=== PATIENT | male | born 2000 | race Two or more races ===

== ENCOUNTER 2019-12-07 08:02 | Inpatient (IN) | payer OTHER ==
[~2019-12-07] VITALS: Ht 172.7 cm; Wt 90.7 kg
--- NOTE | 2019-12-07 08:05 | NUR ---
ED Nurse Note:pt. was BIBA by [employer] and [employer] with suisidal ideations by henrry santana as he told his family , he was placed on 51/50 hold, VSS, no SOB, c/o abdominal pain, room security check was done, sitter log initiated, blood and urine sent to labs
[2019-12-07] MEDS ORDERED: Ketorolac 30mg Inj IV ONE (08:15)
[2019-12-07] MEDS ORDERED: Metoclopramide 10mg/2ml Inj IVP ONE (08:15)
[2019-12-07] MEDS ORDERED: DiphenhydrAMINE 50mg/ml Inj IVP ONE (08:15)
--- NOTE | 2019-12-07 08:26 | Emergency Room Report ---
History of Present Illness General Chief Complaint: Behavioral Complaint Source: Patient, EMS, Law Enforcement Present Illness HPI Patient brought by EMS accompanied by psychiatric evaluation team. Patient told family he was suicidal with a plan to cut his wrists. He had not decided about using razors or knives. He says he was mainly manipulating his family in order for them to be able to get OxyContin. He has been using OxyContin for 3 months. When he began he did not have pain. He does have pain at this time. He last took OxyContin last night. He is saying that he has pain in his stomach and feels nauseated. This pain is 8/10 more epigastric and nonradiating. He also has back pain that he says is 10/10. This is in his lower back. He denies fevers or chills. He is never had problems with depression before. He never taken medication for depression. The psychiatric evaluation team is placing him on a 5150. He believes his father attempted suicide in the past. His father still is alive at this time. No sore throat, chest pain, palpitations, vomiting, diarrhea, dysuria, shortness of breath, rashes, visual changes, dizziness, headache. Allergies: Coded Allergies: No Known Allergies (Unverified , 12/07/19) COVID-19 Screening Contact w/high risk pt: No Experienced COVID-19 symptoms?: No COVID-19 Testing performed LOFTER: No Patient History Past Medical History: see triage record Social History: Reports: smoking, drug use - OxyContin Social History Narrative lives with family Reviewed Nursing Documentation: PMH: Agreed; PSxH: Agreed Nursing Documentation-PM Past Medical History: No Stated History Review of Systems All Other Systems: negative except mentioned in HPI Physical Exam Vital Signs Date Time Temp Pulse Resp B/P (MAP) Pulse Ox O2 Delivery O2 Flow Rate FiO2 12/07/19 07:55 98.4 70 19 133/85 (101) 99 Room Air Sp02 EP Interpretation: reviewed, normal General Appearance: well appearing, no apparent distress, GCS 15 Head: normocephalic Eyes: bilateral eye normal inspection, bilateral eye PERRL, bilateral eye EOMI ENT: moist mucus membranes Neck: supple Respiratory: lungs clear, normal breath sounds Cardiovascular #1: regular rate, rhythm Cardiovascular #2: 2+ radial (R) Gastrointestinal: normal inspection, normal bowel sounds, non tender, no mass, non-distended Musculoskeletal: back normal, normal range of motion, gait/station normal Neurologic: alert, oriented x3 Suicide Risk Assessment: Suicidal Ideation: Yes Had intent to initiate attempt: No Pt's plan for suicide attempt: Yes Has means to complete attempt: Yes Skin: no rash, warm/dry, other - No goosebumps Medical Decision Making Diagnostic Impression: Primary Impression: Suicidal ideation Additional Impressions: Opiate abuse Lab test positive for detection of COVID-19 virus ER Course Patient presents with suicidal ideation after OxyContin use with abdominal and back pain. Differential includes new onset major depression, affective abuse of opiates, electrolyte imbalance, withdrawal amongst others. Patient evaluated with labs. He is placed on a 5150. Patient is treated for pain. A sitter is requested. Patient writhing in severe pain. Abd soft. Ativan and small dose of morphine ordered. Patient improved with treatment. Labs unremarkable aside from positive tox screen for THC and COVID-19 positive. Attempts to transfer the patient unsuccessful due to COVID-19 positive status. Considerations for psychiatric evaluation in the emergency department. However due to the problem of possible opiate withdrawal patient admitted to the hospital. Suggested psychiatric evaluation on the floor. Laboratory Tests Test 12/07/19 08:20 White Blood Count 7.7 K/UL (4.8-10.8) Red Blood Count 5.41 M/UL (4.70-6.10) Hemoglobin 15.7 G/DL (14.2-18.0) Hematocrit 47.9 % (42.0-52.0) Mean Corpuscular Volume 89 FL (80-99) Mean Corpuscular Hemoglobin 29.1 PG (27.0-31.0) Mean Corpuscular Hemoglobin Concent 32.8 G/DL (32.0-36.0) Red Cell Distribution Width 12.6 % (11.6-14.8) Platelet Count 159 K/UL (150-450) Mean Platelet Volume 8.2 FL (6.5-10.1) Neutrophils (%) (Auto) 81.3 % (45.0-75.0) H Lymphocytes (%) (Auto) 12.2 % (20.0-45.0) L Monocytes (%) (Auto) 5.7 % (1.0-10.0) Eosinophils (%) (Auto) 0.4 % (0.0-3.0) Basophils (%) (Auto) 0.4 % (0.0-2.0) Sodium Level 141 MMOL/L (136-145) Potassium Level 4.1 MMOL/L (3.5-5.1) Chloride Level 107 MMOL/L (98-107) Carbon Dioxide Level 27 MMOL/L (21-32) Anion Gap 7 mmol/L (5-15) Blood Urea Nitrogen 17 mg/dL (7-18) Creatinine 1.1 MG/DL (0.55-1.30) Estimated Glomerular Filtration Rate > 60 mL/min (>60) Glucose Level 93 MG/DL (74-106) Calcium Level 8.9 MG/DL (8.5-10.1) Total Bilirubin 0.5 MG/DL (0.2-1.0) Aspartate Amino Transferase (AST) 31 U/L (15-37) Alanine Aminotransferase (ALT) 36 U/L (12-78) Alkaline Phosphatase 83 U/L (46-116) Total Creatine Kinase 119 U/L (26-308) Total Protein 8.0 G/DL (6.4-8.2) Albumin 4.2 G/DL (3.4-5.0) Globulin 3.8 g/dL Albumin/Globulin Ratio 1.1 (1.0-2.7) Lipase 294 U/L (73-393) Salicylates Level 2.1 ug/mL (2.8-20) L Urine Opiates Screen Negative (NEGATIVE) Acetaminophen Level < 2 MCG/ML (10-30) L Urine Barbiturates Screen Negative (NEGATIVE) Phencyclidine (PCP) Screen Negative (NEGATIVE) Urine Amphetamines Screen Negative (NEGATIVE) Urine Benzodiazepines Screen Negative (NEGATIVE) Urine Cocaine Screen Negative (NEGATIVE) Urine Marijuana (THC) Screen Positive (NEGATIVE) H Serum Alcohol < 3 mg/dL Microbiology Date/Time Source Procedure Growth Status 12/07/19 08:20 Nasopharynx SARS-CoV-2 RdRp Gene Assay - Final Complete Last Vital Signs Date Time Temp Pulse Resp B/P (MAP) Pulse Ox O2 Delivery O2 Flow Rate FiO2 12/07/19 16:20 Room Air 12/07/19 16:10 98.4 68 17 131/81 99 Status: improved Disposition: ADMITTED INPATIENT Condition: Serious Scripts No Active Prescriptions or Reported Meds Oniel Agustin MD Dec 07, 2019 08:26
[2019-12-07 08:50] LABS: BASOPHILS % (AUTO) 0.4 % (0.0-2.0); EOSINOPHILS % (AUTO) 0.4 % (0.0-3.0); HEMATOCRIT 47.9 % (42.0-52.0); HEMOGLOBIN 15.7 G/DL (14.2-18.0); LYMPHOCYTES % (AUTO) 12.2 % (20.0-45.0); MEAN CORPUSCULAR VOLUME 89 FL (80-99); MONOCYTES % (AUTO) 5.7 % (1.0-10.0); NEUTROPHILS % (AUTO) 81.3 % (45.0-75.0); PLATELET COUNT 159 K/UL (150-450); RED BLOOD COUNT 5.41 M/UL (4.70-6.10); RED CELL DISTRIBUTION WIDTH 12.6 % (11.6-14.8); WHITE BLOOD COUNT 7.7 K/UL (4.8-10.8)
[2019-12-07] MEDS ORDERED: Morphine Sulfate 2mg/ml Inj(IV/IM USE ONLY) IVP ONE (09:00)
[2019-12-07] MEDS ORDERED: LORazepam Inj 2mg/ml 1ml IV ONE (09:00)
[2019-12-07 09:01] VITALS: BP 133/85
[2019-12-07 09:04] LABS: ANION GAP 7 mmol/L (5-15); BLOOD UREA NITROGEN 17 mg/dL (7-18); CALCIUM 8.9 MG/DL (8.5-10.1); CARBON DIOXIDE 27 MMOL/L (21-32); CHLORIDE 107 MMOL/L (98-107); CREATININE 1.1 MG/DL (0.55-1.30); POTASSIUM 4.1 MMOL/L (3.5-5.1); SODIUM 141 MMOL/L (136-145)
[2019-12-07 09:08] LABS: ALANINE AMINOTRANSFERASE 36 U/L (12-78); ALBUMIN 4.2 G/DL (3.4-5.0); ALBUMIN/GLOBULIN RATIO 1.1 (1.0-2.7); ALKALINE PHOSPHATASE 83 U/L (46-116); ASPARTATE AMINO TRANSFERASE 31 U/L (15-37); BILIRUBIN,TOTAL 0.5 MG/DL (0.2-1.0); CREATINE KINASE 119 U/L (26-308)
--- NOTE | 2019-12-07 09:22 | NUR ---
ED Nurse Note:pt. is covid positive-was placed on isolation, given more pain meds
[2019-12-07 15:37] VITALS: BP 131/81
--- NOTE | 2019-12-07 16:10 | NUR ---
ED Nurse Note:called report to [facility] east- given to Berhane pt. taken up stairs
--- NOTE | 2019-12-07 16:20 | NUR ---
NURSE NOTES: Received report from CASIE Bone. Patient received from ER, AAOx4, on room air, ambulatory. Able to make needs known. IV site patent and intact, VS stable. Patient belongings checked and accounted for with patient. Per CASIE Bone patient verbalized to family at home that he had suicidal idealization. Isolation precaution maintained. RN instructed patient to use call light if felt weak or dizzy before ambulating. Bed is locked and placed in lowest position. call light within reach. Will continue to monitor
[2019-12-07] MEDS: Thiamine 100mg tab ORAL SCH (17:00)
[2019-12-07] MEDS: chlordiazePOXIDE 25mg Cap ORAL SCH (17:35)
--- NOTE | 2019-12-07 19:30 | NUR ---
NURSE NOTES: Pt. received from CASIE Holman. Pt. AAOx4, on room air, breathing even and unlabored, no indications of respiratory distress. Pt. admitted for opiate withdrawal and presenting with complaints of dull back pain, unrelieved by current pain interventions, will follow up with primary physician. IV noted left AC intact and patent running 1/2 NS at 100cc. Bed low and locked, side rails x2 up, and call light in reach. Addendum: 12/07/19 at 2142 by Harmeet Collins RN Endorsed by CASIE Holman that Dr. Saha is aware of pt.s status and did not order for a sitter at this time.
[2019-12-07 20:00] VITALS: BP 139/72
[2019-12-07] MEDS ORDERED: traMADol 50mg tab ORAL PRN (20:15)
--- NOTE | 2019-12-07 20:30 | Progress Note ---
DATE: 12/07/2019 This is a young 19-year-old male who came to the emergency room from home where he has been drinking alcohol, having withdrawal symptoms. The patient also has depression. The patient was also found COVID positive. The patient claims his family members, his mother and father, had COVID about 2 months ago, from which they recovered. The patient is otherwise asymptomatic. Mood is improving. Still feeling depressed. MEDICATIONS: None. ALLERGIES: None. FAMILY HISTORY: Noncontributory. SOCIAL HISTORY: Lives at home. PHYSICAL EXAMINATION: VITAL SIGNS: Blood pressure 112/73, pulse 84, respirations 18, no fever. Slightly tachycardic. HEENT: NAD. CHEST: Bilaterally clear. CARDIOVASCULAR: Regular rhythm. ABDOMEN: Soft. Positive bowel sounds. EXTREMITIES: No edema. GENITOURINARY: Deferred. LABORATORY DATA: Labs are unremarkable. ASSESSMENT: 1. DTs. 2. Alcohol abuse. 3. COVID-19 positive. PLAN: We will admit on isolation. Consider psychiatric consult and continue supportive treatment. Continue psychotropic, behavioral therapy. Chucky Mahajan M.D. DR: JON JOB#: [id number] CC:
[2019-12-08] VITALS: BP 136/68
[2019-12-08] MEDS: traMADol 50mg tab ORAL PRN ×2 (02:15→08:17)
[2019-12-08 04:00] VITALS: BP 134/74
--- NOTE | 2019-12-08 07:26 | NUR ---
NURSE HAND-OFF: Important Events on Shift:[safety maintained] Patient Status: [stable] Diet: [regular] Pending Orders: [] Pending Results/Labs:[] Pending MD notification:[] Latest Vital Signs: Temperature 98.1 , Pulse 65 , B/P 134 /74 , Respiratory Rate 18 , O2 SAT 96 , Room Air, O2 Flow Rate . Vital Sign Comment: [] Latest Light Fall Score: 20 Fall Risk: Low Risk Safety Measures: Call light Within Reach, Bed Alarm , Side Rails Side Rails x2, Bed position Low and Locked. Fall Precautions: Patient Fall Education Report given to [CASIE Mike].
--- NOTE | 2019-12-08 07:50 | NUR ---
NURSE NOTES: PT AXOX4, PLEASANT AND TALKATIVE. PT DENIES ANY SUICIDAL IDEATION OR HALLUCINATION. PT IS RESTING IN BED, CALM. PT STATES HE HAS PAIN OF ABDOMEN, ACHING AND TWISTING. PT EDUCATED ON AVAILABLE PRN PAIN MEDICATIONS AND WANTS TO TAKE TRAMADOL. PT EDUCATED ON FALL PRECAUTIONS, AND VERBALIZED UNDERSTANDING. PT DENIES SOB OR DIZZINESS WHEN AMBULATING. BED IN LOWEST POSITION WITH BEDSIDE RAILS X2 RAISED. WILL CONTINUE TO MONITOR. CALL LIGHT WITHIN REACH.
[2019-12-08 08:00] VITALS: BP 139/74
[2019-12-08] MEDS: Thiamine 100mg tab ORAL SCH (08:16)
[2019-12-08] MEDS: chlordiazePOXIDE 25mg Cap ORAL SCH ×2 (08:16→12:45)
--- NOTE | 2019-12-08 11:04 | NUR ---
FISCAL SPECIALIST NOTE SW met w/ pt to discuss 5150 incident and assess his mood/needs. Pt presents as A&O4x. Pt denies SI/AH/VH, stating this is the first incident happened to him. PT denies having previous psychiatric hx. Pt is ambulatory w/o DMEs and independent w/ ADLs and IADLs. PT reports abusing Oxycontin for 3 months. RUDS positive for THC. Pt reports it was mainly the substance abuse issue, not mental health issue. Pt plans to go to substance abuse rehab when possible. SW provided the substance abuse rehab resource (including dual dx program). Pt resides w/ his family at [address] [address] Pt provided verbal consent to contact his father, Aren [phone]. SW spoke w/ and confirmed that the family can arrange the self-quarantine placement upon DC.
[2019-12-08 11:40] VITALS: BP 137/73
--- NOTE | 2019-12-08 13:25 | NUR ---
CASE MANAGEMENT:INITIAL REVIEW 19YR OLD MALE BIBA FROM HOME CC: SUICIDAL IDEATIONS WITH CUTTING VEINS AND DRUG ABUSE; ABD PAIN WITH N&V PLACED ON 5150 HOLD IN ER SITTER IN PLACE SI:OPIATE WITHDRAWAL . COVID 19 + PNA 98.4 70 19 133/85 99% ON RA IS:IVF NS BOLUS X1 IV BENADRYL X1 IV REGLAN X1 IV TORADOL X1 LIBRIUM PO TID NEURONTIN PO BID MOTRIN PO Q6HR/PRN \: 4E MED SURG UNIT DCP: HOME VS REHAB FOR DRUG ABUSE PLAN: SOCIAL SERVICE CONSULT CASE MANAGEMENT:REVIEW 12/08/19 SI:OPIATE WITHDRAWAL . COVID 19 + PNA 98.3 61 16 137/73 98% ON RA IS:IV NS@100ML/HR NEURONTIN PO BID LIBRIUM PO TID \: 4E MED SURG UNIT DCP: HOME VS REHAB FOR DRUG ABUSE PLAN: SOCIAL SERVICE CONSULT
--- NOTE | 2019-12-08 14:14 | NUR ---
NURSE NOTES: AT 1245HRS, PT INFORMED RN HE WANTS TO "SIGN OUT". RN ASKED PT WHY HE WANTED TO LEAVE, PT REPLIED "I JUST WANT TO LEAVE. I'M OK". RN EDUCATED PT THAT DR CHAVEZ WANTED TO MNOITOR PT AND HE IS COVID POSITIVE. PT STATED "I KNOW, I ALREADY TOLD MY PARENTS AND I'M GONNA STAY WITH THEM". RN INFORMED CRN. CRN SPOKE TO DR CHAVEZ, AND RECEIVED ORDER PT IS TO WAIT FOR DR THOMSON. RN INFORMED PT, BUT HE DID NOT WANT TO WAIT FOR EVAL BY DR THOMSON. RN INFORMED PT ON SIGNING OUT AGAINST MEDICAL ADVICE AND PT AGREED TO SIGN HIMSELF OUT. PT SIGNED AMA FORM. RN PROVIDED PT WITH EDUCATION PACKETS ON COVID PROTECTION, INFECTION CONTROL, AND QUARANTINE PER [facility]. RN RE-INFORCED EDUCATION ON QUARANTINE. PT VERBALIZED UNDERSTANDING. IV ACCESS REMOVED. CRN MADE NURSERY NURSE MARGARET AWARE. RN INFORMED DR CHAVEZ ON PT LEAVING AMA. RN INFORMED BENTLEY, INTERIM PUBLIC RELATIONS COORDINATOR. PT WAS GIVEN MULTIPLE FACE MASKS. PT WAS PICKED UP BY FATHER AND LEFT IN PRIVATE VEHICLE.
--- NOTE | 2019-12-08 14:30 | Progress Note ---
DATE: 12/08/2019 SUBJECTIVE: This is a 19 years old male, who came with drug withdrawal, depression, and psychosis. The patient is in bed, currently doing fine. Mood is better. OBJECTIVE: VITAL SIGNS: Blood pressure 139/74, pulse 68. No fever. CHEST: Bilaterally clear. CARDIOVASCULAR: Regular rhythm. ABDOMEN: Soft. EXTREMITIES: No edema. ASSESSMENT: 1. Substance abuse. 2. Alcohol abuse. 3. Drug withdrawal. 4. Depression. 5. COVID-19 positive. PLAN: We are currently waiting for Psych. Continue isolation. Continue Librium, thiamine and folic acid, supportive treatment, behavior therapy. Chucky Mahajan M.D. DR: FABIANA JOB#: [id number] CC:
--- NOTE | 2019-12-08 16:44 | NUR ---
*-* INSURANCE *-* UPDATED CLINICALS AND REVIEWS HAVE BEEN FAXED TO: [place] [facility] FA[facility] CLINIC[facility] TO [facility] P:[phone] F:[phone]
--- NOTE | 2019-12-09 11:46 | Discharge Summary ---
Discharge Summary Discharge Summary _ DATE OF ADMISSION: 12/07/2019 DATE OF DISCHARGE: 12/08/2019 Patient left AGAINST MEDICAL ADVICE REASON FOR ADMISSION: 19 years old male brought by paramedics accompanied by psychiatric evaluation team. Patient told his family that he was suicidal with plan to cut his wrists. Patient reported that he was mainly manipulating his family in order for them to be able to get him OxyContin. He had been using OxyContin for the last 3 months. He reported having pain at all times. He reported pain in his stomach and feel nauseated ; pain reported as epigastric and nonradiating. He also reported lower back pain. He denied fever and chills. No prior problem with depression. No medication for depression. Psychiatric evaluation team placed him on 5150. Upon evaluation vital signs were stable. Laboratory work-up was unremarkable . Urine toxicology screen was positive for marijuana. Serum alcohol less than 3. Rapid COVID-19 was positive. Due to positive COVID result, patient was unable to be transferred to psychiatric facility. In emergency department patient received analgesic and anxiolytic and improved with treatment. Patient subsequently admitted to medical surgical floor. HOSPITAL COURSE: Patient admitted to medical surgical floor to isolation room for psychiatric evaluation. Patient presented with suicidal ideation after OxyContin use with abdominal and back pain. Psychiatric consult was requested. Pain management and anxiolytics provided as needed. Patient started on thiamine and folic acid. Supportive treatment provided. On 12/07 patient decided to leave against medical advise. Patient was advised to wait for psychiatric evaluation, which was pending. The risks and consequences of signing AGAINST MEDICAL ADVICE were discussed with patient in detail. Patient verbalized understanding, nevertheless signed AMA form and left. FINAL DIAGNOSES: Suicidal ideation COVID-19 positive Substance abuse/opiate abuse, marijuana Alcohol abuse Depression I have been assigned to dictate discharge summary for this account. I was not involved in the patient's management. Mita Love NP Dec 09, 2019 11:46
== END 2019-12-08 14:11 | disposition left against medical advice (07) | DRG 770 ==
LOC: EDBD 08:02 → EMR 08:33 → 4E 11:05 → EDBEDREQ 15:41
DX: F10.231 Alcohol dependence with withdrawal delirium (principal); F11.23 Opioid dependence with withdrawal; U07.1 COVID-19; F12.10 Cannabis abuse, uncomplicated; F32.9 Major depressive disorder, single episode, unspecified; R45.851 Suicidal ideations; G89.29 Other chronic pain; R10.9 Unspecified abdominal pain; M54.9 Dorsalgia, unspecified
CPT/HCPCS: 36415; 80053; 80307; 82550; 83690; 85025; 96374; 96375; 99285; G0480; J2765; U0002